=== PATIENT | female | born 1980 | race Caucasian/White ===

== ENCOUNTER 2019-08-15 17:53 | Emergency (ER) | payer BC ==
[~2019-08-15] VITALS: Ht 162.6 cm; Wt 56.7 kg
[2019-08-15 18:11] VITALS: Ht 162.6 cm; Wt 56.7 kg
[2019-08-15 19:14] VITALS: BP 110/70
== END 2019-08-15 19:14 | disposition home or self-care (01) ==
LOC: ED 17:53
DX: T24.032A Burn of unspecified degree of left lower leg, initial encounter (principal); Z88.0 Allergy status to penicillin; X17.XXXA Contact with hot engines, machinery and tools, initial encounter; Y93.89 Activity, other specified; Y92.89 Other specified places as the place of occurrence of the external cause; Y99.8 Other external cause status
CPT/HCPCS: J0696; Q0162